=== PATIENT | male | born 1995 | race Two or more races ===

== ENCOUNTER 2025-06-27 16:42 | Emergency (ER) | payer MEDICAID, SELFPAY ==
[2025-06-27 17:15] VITALS: BP 140/90; PULSE 89; RESP 18; TEMP 37.1; O2SAT 100; BMI 20.4
--- NOTE | 2025-06-27 17:16 | ED_ITS ---
HPI - General Adult General Chief complaint: Recheck/Abnormal Lab/Rx Stated complaint: vomiting; abd pain Time Seen by Provider: 06/27/25 20:32 Source: patient Limitations: no limitations History of Present Illness ED Provider: Linda Mahmood PA-C HPI narrative: 30-year-old male presents with nausea vomiting diarrhea x1 week. Associated poor oral intake. Denies recent travel, use of antibiotics or hospitalization, no sick contacts with similar symptoms. Denies cough or cold symptoms no fever. Denies abdominal pain. Denies polyuria polydipsia. Patient states the diarrhea has since subsided. Related Data Previous Rx's ?Medication ?Instructions ?Recorded metformin 500 mg tablet 500 mg PO BIDWMEAL #60 tabs 06/28/25 ondansetron 4 mg disintegrating 4 mg PO Q8H PRN nausea and 06/28/25 tablet vomiting #10 tabs Allergies Allergy/AdvReac Type Severity Reaction Status Date / Time No Known Allergies Allergy Verified 06/27/25 17:20 Review of Systems 2 Review of Systems: No all other systems are reviewed and are negative Constitutional: Constitutional: Denies fatigue, Denies fever(s) and Reports poor appetite Cardiovascular: Cardiovascular: Denies chest pain and Denies dyspnea Respiratory: Respiratory: Denies cough and Denies dyspnea Gastrointestinal: Gastrointestinal: Denies abdominal pain, Denies diarrhea, Reports nausea and Reports vomiting Endocrine: Endocrine: Denies fatigue PMFSH Past Medical History Attestation statement: The following information was validated with the patient. Social History Social History Smoked in Last 30 Days: Yes Use of substances other than those prescribed or required for medical reasons: No Advance Directives: No Advance Directives Information Provided: No Physical Exam ED Exam Exam: Alert Vital Signs: Vital Signs - 24 hr 06/27/25 17:15 06/27/25 19:33 06/27/25 23:00 Temperature 98.7 F 98.0 F Pulse Rate 89 88 80 Respiratory Rate 18 18 16 Blood Pressure 140/90 H 135/86 113/70 Pulse Oximetry 100 100 98 Oxygen Delivery Method Room Air Room Air Room Air BMI result Body Mass Index 20.4 Const Orientation/consciousness: patient oriented x3 Resp Effort & Inspection: normal respiratory effort Cardio Other: Normal peripheral perfusion Skin Other: Warm dry no rash Neuro General: patient oriented x3, gait normal, no focal motor deficits and CN's II- XI intact bilaterally Psych Other: Cooperative Course Course Course Narrative: This is a Rapid Medical Examination (RME) performed by Shira Wheatley PA-C in triage. Full HPI, ROS, assessment and treatment plan per primary provider in the Main ED. Hx: 30 yo M no known medical hx here from for eval of N/V and feeling generally unwell x1 week. glucose at noted to be 200 with ketones in urine- no personal hx of DM. reports hx of DM in both parents. reports sweet odor to urine but no increased drinking or urination. unable to tolerate PO. Plan: labs, UA Reevaluation(s) Reevaluation #1: P.o. challenge Reevaluation #2: Patient drank without vomiting, he has not required antiemetic care, we will send with home care instructions Medications Administered Discontinued Medications Generic Name Dose Route Start Last Admin Trade Name Freq PRN Reason Stop Dose Admin Sodium Chloride 1,000 mls @ 999 mls/hr 06/27/25 20:45 06/27/25 21:46 Ns IV 06/27/25 21:45 Infused .Q1H1M DAO Infusion Medical Decision Making Medical Decision Making [facility] Narrative: 30-year-old male presents with nausea vomiting diarrhea x1 week. Associated poor oral intake. Denies recent travel, use of antibiotics or hospitalization, no sick contacts with similar symptoms. Denies cough or cold symptoms no fever. Denies abdominal pain. Denies polyuria polydipsia. Patient states the diarrhea has since subsided. No underlying chronic issues History: Per patient I have considered the following differential diagnoses: New onset diabetes, DKA, HHS, acute intra-abdominal pathology, viral gastroenteritis, C diff, traveler's diarrhea Plan: The patient was seen at urgent Care, he was noted to be ketotic and was passing sugar in his urine, his point of care was 200. It appears the patient is newly diabetic, he states he has a strong family history, both his parents are diabetic. Screening labs were already obtained, there was no gap, the patient is not in DKA. We will be giving fluid. In regard to the diarrhea, that has since subsided. He does not have any sick contacts to suggest viral gastroenteritis. He also has no risk factors for C diff or traveler's diarrhea. He also has no abdominal pain to suggest acute intra-abdominal infection such as diverticulitis. Imaging not warranted. We will be sending the patient with home care instructions, starting him on metformin, and have advised that he needs to follow up with primary care for further lab studies and treatment. I have independently reviewed the following tests: Labs: No leukocytosis, not anemic, no electrolyte abnormality, no gap, sugar 194, following fluids 163, urine not infected Lab Data 06/27/25 18:02 06/27/25 18:02 Labs: Lab Results 06/27/25 06/27/25 06/27/25 Range/Units 18:02 18:27 22:28 WBC 7.2 (4.8-10.8) X10*3/uL RBC 5.88 H (4.60-5.80) X10*6/uL Hgb 15.2 (14.0-18.0) g/dl Hct 44.2 (42.0-52.0) % MCV 75.2 L (80.0-98.0) fL MCH 25.9 L (27.0-33.0) pg MCHC 34.4 (31.0-36.0) g/dl RDW 11.7 (11.0-16.0) % Plt Count 268 (160-400) X10*3/uL MPV 10.4 (9.4-12.4) fL Immature Gran % (Auto) 0.1 (0.0-0.4) % Neut % (Auto) 60.0 (45-73) % Lymph % (Auto) 31.3 (20-40) % [place] % (Auto) 6.8 (2-11) % Eos % (Auto) 1.4 (0-4) % Baso % (Auto) 0.4 (0-2) % Lymph # (Auto) 2.2 (1.2-4.9) X10*3/uL [place] # (Auto) 0.5 (0.1-1.2) X10*3/uL Eos # (Auto) 0.1 (0.0-0.4) X10*3/uL Baso # (Auto) 0.0 (0.0-0.2) X10*3/uL Abs Immat Gran (auto) 0.01 (0.00-0.03) X10*3/uL Absolute Neuts (auto) 4.3 (2.0-8.3) x10*3/uL Absolute Nucleated RBC 0.000 (0.0-0.012) X10*3/uL Nucleated RBC % (auto) 0.0 (0.0-0.2) /100WBC Sodium 133 L (135-145) mmol/L Potassium 4.1 (3.3-5.1) mmol/L Chloride 96 (96-108) mmol/L Carbon Dioxide 23 (22-29) mmol/L Anion Gap 18 (12-20) BUN 13 (9-16) mg/dL Creatinine 0.77 (0.5-1.4) mg/dL Estim Creat Clear Calc 135.5 Estimated GFR > 60 POC Glucose 163 H (60-115) mg/dL Random Glucose 194 H (60-115) mg/dL Calcium 9.6 (8.4-10.2) mg/dL Magnesium 2.2 (1.6-2.6) mg/dL Total Bilirubin 0.7 (0.0-1.0) mg/dL AST 23 (5-37) U/L ALT 26 (0-40) U/L Alkaline Phosphatase 99 (39-117) U/L Total Protein 8.1 H (6.5-8.0) g/dL Albumin 4.8 (3.5-5.0) g/dL Lipase 22 (8-78) U/L Beta-Hydroxybutyrate 2.55 H (0.02-0.27) mmol/L Urine Color Dark Yellow Urine Appearance Clear Urine pH 5.5 (5.0-9.0) Ur Specific [place] >= 1.030 H (1.005-1.025) Urine Protein 300 (3+) H (Neg-Trace) mg/dL Urine Glucose (UA) >=1000 H (Negative) mg/dL Urine Ketones >=160 (Negative) mg/dL Urine Blood Small (1+) H (Negative) Urine Nitrite Negative (Negative) Ur Leukocyte Esterase Negative (Negative) Urine RBC 0-2 (0-2) /HPF Urine WBC 0-5 (0-5) /HPF Ur Squamous Epith Cells 0-2 (0-2) /HPF Urine Bacteria None Seen (None Seen) Hyaline Casts 6-10 (0-2) /LPF Discharge Plan Discharge Clinical Impression: Nausea & vomiting, Hyperglycemia Patient Disposition: Home, Self-Care Instructions: Acute Nausea and Vomiting (ED), Nondiabetic Hyperglycemia (ED) Additional Instructions: Your screening labs reveal that you have likely developed new onset diabetes. See home care instructions. Take the metformin as directed, this is a medication used to manage diabetes. You should also purchase a glucometer so that you can keep track of your blood sugar levels. You need to follow up with your primary care provider for further lab studies and treatment/management of your suspect new onset diabetes. Uses Zofran as needed for nausea. Prescriptions: New metformin 500 mg tablet 500 mg PO BIDWMEAL Qty: 60 0RF ondansetron 4 mg tablet,disintegrating 4 mg PO Q8H PRN (Reason: nausea and vomiting) Qty: 10 0RF Stand Alone Forms: Work/School Release Print Language: Czech
[2025-06-27 18:06] LABS: MANUAL DIFF FLAG NO
[2025-06-27 18:08] LABS: Hematocrit 44.2 % (42.0-52.0); Hemoglobin 15.2 g/dl (14.0-18.0); Imm Gran Abs Auto 0.01 X10*3/uL (0.00-0.03); Imm Gran Pct Auto 0.1 % (0.0-0.4); Lymphocytes Absolute Auto 2.2 X10*3/uL (1.2-4.9); Mean Corpuscular HGB Conc 34.4 g/dl (31.0-36.0); Mean Corpuscular Hemoglobin 25.9 pg (27.0-33.0); Mean Corpuscular Volume 75.2 fL (80.0-98.0); NRBC Abs Auto 0.000 X10*3/uL (0.0-0.012); NRBC Pct Auto 0.0 /100WBC (0.0-0.2); Platelet Count 268 X10*3/uL (160-400); Red Blood Count 5.88 X10*6/uL (4.60-5.80); White Blood Count 7.2 X10*3/uL (4.8-10.8)
[2025-06-27 18:25] LABS: Alanine Aminotransferase 26 U/L (0-40); Albumin Level 4.8 g/dL (3.5-5.0); Alkaline Phosphatase 99 U/L (39-117); Anion Gap 18 (12-20); Aspartate Amino Transferase 23 U/L (5-37); Blood Urea Nitrogen 13 mg/dL (9-16); Calcium 9.6 mg/dL (8.4-10.2); Carbon Dioxide 23 mmol/L (22-29); Chloride 96 mmol/L (96-108); Creatinine Clr Calc Pharmacy 135.5; Estimated Glomerular Filt Rate > 60; Lipase 22 U/L (8-78); Magnesium 2.2 mg/dL (1.6-2.6); Potassium 4.1 mmol/L (3.3-5.1); Sodium 133 mmol/L (135-145); Total Protein 8.1 g/dL (6.5-8.0)
[2025-06-27 18:39] LABS: Appearance Urine Clear; Glucose Urine UA >=1000 mg/dL (Negative); PH 5.5 (5.0-9.0); Specific Gravity - Urine >= 1.030 (1.005-1.025); UMIC TRIGGER UACC YES
[2025-06-27 19:33] VITALS: BP 135/86; PULSE 88; RESP 18; TEMP 36.7; O2SAT 100
--- NOTE | 2025-06-27 19:58 | PC.NURSE ---
assumed care of pt, pt states discomfort in abd from vomit, no food or liquids tolerated x2 days. Pt confirms normal urine and BM over the last few days. denies fever. Respirations even and unlabored.
--- NOTE | 2025-06-27 21:01 | PC.NURSE ---
Iv line started and fluids running, provider at bedside.
[2025-06-27 22:31] LABS: Glucose, Whole Blood 163 mg/dL (60-115)
[2025-06-27 23:00] VITALS: BP 113/70; PULSE 80; RESP 16; O2SAT 98
[2025-06-28 00:21] VITALS: BP 114/68; PULSE 84; RESP 16; TEMP 36.7; O2SAT 98
[2025-06-28 00:22] VITALS: BP 114/68; PULSE 84; RESP 16; TEMP 36.7; O2SAT 98
== END 2025-06-28 00:24 | disposition home or self-care (01) ==
PROVIDERS: Physician Assistant Medical; Emergency Provider Emergency Medicine
DX: R73.9 Hyperglycemia, unspecified (principal); R11.2 Nausea with vomiting, unspecified; R19.7 Diarrhea, unspecified; Z83.3 Family history of diabetes mellitus
CPT/HCPCS: 36415; 80053; 81001; 82010; 82947; 83690; 83735; 85025; 96360; 99284